=== PATIENT | male | born 1930 | race Caucasian/White ===

== ENCOUNTER → 2018-02-24 | Outpatient (CLI) | payer MEDICARE, BC ==
[2018-02-24 16:36] LABS: HCT 36.7 % (39.0-53.0); HGB 11.8 gm/dL (13.0-17.5); MCH 28.7 pg (25.0-35.0); MCHC 32.2 g/dL (31.0-37.0); Mean Platelet Volume 6.5; Platelet Count 317 k/uL (150-450); RBC 4.12 m/uL (4.30-5.90); RDW 14.4 % (11.5-15.5)
[2018-02-24 16:43] LABS: INR 1.1 (<1.2); Partial Thromboplastin Time 23.8 sec (22.0-30.0); Prothrombin Time 10.7 sec (9.0-12.0)
[2018-02-24 16:45] LABS: Appearance,Urine Cloudy (Clear); Bilirubin,Urine Negative (Negative); Blood,Urine Small (Negative); Color,Urine Yellow; Glucose,Urine (UA) Negative (Negative); Hyaline Casts,Urine 3 /lpf (0-2); Ketones,Urine Negative (Negative); Leukocyte Esterase,Urine Large (Negative); Mucus,Urine Rare /hpf; Nitrite,Urine Negative (Negative); PH, Urine 6.5 (5.0-8.0); Protein,Urine 2+ (Negative); RBC,Urine 11 /hpf (0-5); Specific Gravity,Urine 1.015 (1.001-1.035); Urobilinogen,Urine <2.0 mg/dL (<2.0); WBC,Urine 76 /hpf (0-5)
[2018-02-24 16:48] LABS: Albumin 4.2 g/dL (3.5-5.0); Calcium 9.6 mg/dL (8.4-10.2); Potassium 4.2 mmol/L (3.5-5.1); Total Bilirubin 0.3 mg/dL (0.2-1.3); Total Protein 6.7 g/dL (6.3-8.2)
== END | disposition home or self-care (01) ==
LOC: LABPAT 15:27
PROVIDERS: ATTEND Orthopaedic Surgery
DX: Z01.812 Encounter for preprocedural laboratory examination (principal)
CPT/HCPCS: 36415; 80053; 81001; 85027; 85610; 85730; 87070

== ENCOUNTER 2018-03-04 05:41 | Inpatient (IN) | payer MEDICARE, BC ==
[2018-02-27 14:39] VITALS: BMI 30.2
[~2018-03-04 05:41] MED LIST: ACETAMINOPHEN TAB 500 MG TAB PO ONE; DEXAMETHASONE SOD PHOSPHATE 10 MG/ML 1 ML VIAL IV ONE; MELOXICAM 7.5 MG TAB PO ONE; MIDAZOLAM 2 MG/2 ML VIAL IV PRN; ONDANSETRON 4 MG/2 ML VIAL IVP ONE; SCOPOLAMINE 1.5MG/72HR PATCH TRANSDERM ONE; TRANEXAMIC ACID 1,000 MG in SODIUM CHLORIDE 0.9% 50 ML IVPB ONE; ceFAZolin IN SWFI 2 GM/20 ML SYRINGE IVP ONE; fentaNYL (PF) 50 MCG/ML 2 ML AMP IV PRN
[2018-03-04] MEDS: LACTATED RINGERS 1,000 ML IV SCH (06:43)
[2018-03-04] MEDS ORDERED: LIDOCAINE 1% 20 ML VIAL (10MG/ML) FOR IV START INTRADERMA ONE (06:46)
[2018-03-04 06:53] LABS: Glucose,Whole Blood 91 mg/dL (75-99)
[2018-03-04] MEDS ORDERED: ONDANSETRON 4 MG/2 ML VIAL IVP PRN (06:53)
[2018-03-04] MEDS ORDERED: HYDROmorphone 0.5 MG/0.5 ML SYRINGE IVP PRN ×3 (06:53)
[2018-03-04] MEDS ORDERED: DIAZEPAM 5 MG TAB PO PRN ×2 (06:53)
[2018-03-04] MEDS ORDERED: MAGNESIUM HYDROXIDE 2,400 MG/10 ML CUP PO PRN (06:53)
[2018-03-04] MEDS ORDERED: traMADol 50 MG TAB PO PRN ×2 (06:53→14:31)
[2018-03-04] MEDS ORDERED: NALOXONE 0.4 MG/ML 1 ML VIAL IV PRN (06:53)
[2018-03-04] MEDS ORDERED: PHENYLEPHRINE-0.9% NACL SYG 1 MG/10 ML SYRINGE ONE (06:55)
[2018-03-04] MEDS ORDERED: SODIUM CHLORIDE 0.9% 100 ML BAG ONE (06:55)
[2018-03-04] MEDS ORDERED: diphenhydrAMINE 50 MG/ML 1 ML VIAL ONE (06:55)
[2018-03-04] MEDS ORDERED: HEPARIN SODIUM,PORCINE 10,000 UNIT/ML 1 ML VIAL ONE (06:55)
[2018-03-04] MEDS ORDERED: MIDAZOLAM 2 MG/2 ML VIAL ONE (06:55)
[2018-03-04] MEDS ORDERED: fentaNYL (PF) 50 MCG/ML 2 ML AMP ONE (06:55)
[2018-03-04] MEDS ORDERED: ePHEDrine SULFATE/0.9% NACL/PF 50 MG/5 ML SYRINGE IV ONE (06:55)
[2018-03-04] MEDS ORDERED: LACTATED RINGERS 1,000 ML BAG IV ONE (06:55)
[2018-03-04] MEDS ORDERED: TRANEXAMIC ACID 1,000 MG/10 ML VIAL ONE (06:55)
[2018-03-04] MEDS: ROPIVACAINE 246.25 MG, EPINEPHrine 0.5 MG, KETOROLAC 30 MG, cloNIDine HCL/PF 80 MCG, WA... MISCELLANE ONE ×10 (07:36→08:16)
[2018-03-04] MEDS ORDERED: ceFAZolin 3,000 MG in SODIUM CHLORIDE 0.9% IRRIGATIO 3,000 ML IRRIGATION ONE (07:37)
--- NOTE | 2018-03-04 08:39 | P.OP ---
Date of Procedure: 03/04/18 Preoperative Diagnosis: Severe osteoarthritis right hip Postoperative Diagnosis: Severe osteoarthritis right hip Procedure(s) Performed: Right total hip arthroplasty with a direct anterior approach Implants: Luevano and nephew Polarstem size 5 standard Luevano [employer] Nephew R3, 3 hole acetabular shell, 56 mm [employer] Nephew reflection 6.5 mm cancellus screw, 20 mm 2 [employer]hew R3, XLPE 20 acetabular liner Luev[employer] Nephew Oxinium femoral head 36 m, +0 All components were press-fit. The articulation is Oxinium on polyethylene. Anesthesia: spinal Surgeon: Giancarlo Tran Clinical Recruiter #1: Cindy Acuña Estimated Blood Loss (ml): 100 Pathology: other (Femoral head) Condition: stable Disposition: PACU Indications for Procedure: After failure of conservative treatment we discussed the surgical and nonsurgical treatment options at length. Patient wishes to proceed with a total hip arthroplasty with a direct anterior approach. Complications specific to this procedure were discussed at length, including but not limited to infection, leg length discrepancy, dislocation, and nerve injury. Patient is aware of all these complications and informed consent was obtained Operative Findings: The operative findings are consistent with severe osteoarthritis the right hip Description of Procedure: Patient was seen and evaluated in the preoperative area, consent was reviewed, and the surgical site was marked with a skin marker. Patient was then brought to the operating room and given prophylactic antibiotics intravenously. 1 g of Tranexamic acid was also given. A spinal anesthetic was administered by the anesthesia department. The patient was then placed on the [place] table with the bony prominences well-padded. The hip area was then prepped and draped in usual sterile fashion. A universal timeout was then performed, which confirmed the patient's name, surgical site, ALLERGIES, and procedure being performed. Next the incision site was located at 1 cm distal and 1 cm lateral to the anterior superior iliac spine. The skin and subcutaneous tissues were sharply incised. Incision was carefully dissected down to the fascia overlying the tensor fascia sola muscle. This fascia was then incised in line with the incision. Next, using blunt finger dissection, the tensor fascia sola muscle was dissected off its investing fascia. The muscle was then carefully retracted laterally with a cobra retractor over the lateral neck of the femur. Next, the circumflex vessels were identified and cauterized using the AquaMantis device. The anterior hip capsule was then exposed. The capsule was then opened and an inverted T fashion. Cobra retractors were then placed intracapsularly. The proximal femur was then visualized. The femoral neck was then osteotomized appropriate level above the lesser trochanter. Small amount of traction was placed with the [place] table. A small wedge of bone was then removed from the remaining femoral head. Next, using a corkscrew femoral head was easily removed from the acetabulum. On gross visual inspection, the femoral head had complete loss of articular cartilage in multiple periarticular osteophytes. Attention was then turned to the acetabulum. the acetabulum was exposed and any remaining labrum was excised. Sequential reaming of the acetabulum was performed using fluoroscopic guidance. When the appropriate size was reached, a trial was then placed. The position and fit of the trial was checked with fluoroscopy. The trial was then removed. Then, using fluoroscopic guidance, the final implant was impacted at 20 of anteversion and 40 of abduction, and fully seated in the acetabulum. 2 screws were then placed in the acetabulum. Again fluoroscopy was used to check position of the screws. Next, the liner was then impacted, with a 20 elevated liner located in the anterior superior quadrant. Component locking was confirmed. Attention was then directed to the femur. With the aid of the [place] table, the femur was externally rotated to approximately 130, extended, and abducted under the opposite leg. A side hook was then placed under the proximal femur, and the side hook elevator was used to elevate the proximal femur. Retractors were then placed. A capsular release was performed, as well as a release of the conjoined tendon, which afforded excellent visualization of the proximal femur. Next, a box osteotome was used to lateralize the proximal femur. A bread room hand was then used to locate the femoral canal. Sequential broaching was then performed with appropriate size which afforded excellent fixation in the proximal femur. A trial was then placed with appropriate head and neck, and the hip was gently reduced with the aid of the [place] table. Fluoroscopy was then used to check position of the components, as well as to ensure equal leg lengths. The hip was then gently dislocated and the trials were then removed. Final implants were then impacted and the hip was again reduced. Final fluoroscopic x-rays confirmed that the components were in anatomic position, as well as equal leg lengths. The hip was also taken through range of motion, and found to be stable. The hip was then copiously irrigated with antibiotic solution with pulsatile lavage. The hip was then irrigated with Irrisept solution. The soft tissues were then injected with a ropivacaine solution, which consisted of 246.25 mg of ropivacaine, 0.5 mg of epinephrine, 30 mg of Toradol, 80 g of clonidine, and 48.45 mL of sterile water, for a total of 100 mL of fluid injected. A second dose of 1 g of Tranexamic acid was also given. the fascia was then closed with 2-0 strata fix suture. The subcutaneous tissue was closed with 3-0 Vicryl. The subcuticular tissue was closed with 3-0 strata fix suture. The skin was then closed with Dermabond glue and a sterile silver dressing. The patient was then transferred to the recovery room in stable condition. The psychological assistant TARA Anglin was required due to the complexity of surgery, and the need for skilled legal assistant for positioning, draping, exposure, retraction, and closure of the wound.
--- NOTE | 2018-03-04 09:31 | XR ---
Limited right hip history: Anterior hip replacement 2 intraoperative C-arm images document the procedure.
--- NOTE | 2018-03-04 09:31 | XR ---
Limited right hip HISTORY: Postop right hip Single frontal view of the right hip. Patient is status post right hip arthroplasty. Probable prostatectomy clips present in the right tahir pelvis with penile prosthesis reservoir. Anatomic alignment post right hip arthroplasty. Lucency in the soft tissues is likely postoperative. IMPRESSION: Orthopedic follow-up.
--- NOTE | 2018-03-04 09:32 | FL ---
Fluoroscopy HISTORY: Hip replacement 40 seconds fluoroscopy time supplied to the referring clinician. 2 intraoperative C-arm images docum ent the procedure. See dictated report from orthopedic surgery.
[2018-03-04] MEDS: ASPIRIN 325 MG TAB PO SCH ×2 (11:27→20:20)
[2018-03-04 11:36] VITALS: RESP 16
[2018-03-04] MEDS: SODIUM CHLORIDE 0.9% 1,000 ML IV SCH ×2 (12:36→22:33)
[2018-03-04] MEDS ORDERED: traMADol 50 MG TAB PO SCH (13:00)
[2018-03-04] MEDS: ceFAZolin IN SWFI 2 GM/20 ML SYRINGE IVP SCH ×2 (14:36→22:29)
--- NOTE | 2018-03-04 14:47 | P.CONS ---
History of Present Illness - Reason for Consult Consult date: 03/04/18 Medical management Requesting physician: Giancarlo Tran - Chief Complaint right hip pain - History of Present Illness Patient is an 87-year-old male with past medical history of hypertension, diabetes, dyslipidemia, and chronic indwelling suprapubic tube who presented to the hospital for elective right total hip arthroplasty. Patient tolerated procedure well. Patient seen and examined at bedside. He is doing well after surgery. His pain was well-controlled, he denies any nausea, he is not having any shortness of breath or cough. He denies any recent infections including urinary tract infection. He does have a chronic suprapubic tube. He has not been sick or ill at all recently and denies any current cough, cold, fever, flu, chest pain, shortness of breath, nausea, vomiting, diarrhea. He does struggle with chronic constipation. Patient states he just finished a 10 day course of Cipro secondary to his urine. He was placed on this by his PCP would obtained a culture. He finished this 2 days prior to admission. Review of Systems Positives: + Right hip pain, + chronic constipation Pertinent positives and negatives as discussed in HPI, a complete review of systems was performed and all other systems are negative. Past Medical History Past Medical History: Cancer, Diabetes Mellitus, Hyperlipidemia, Hypertension, Osteoarthritis (OA), Prostate Disorder, Vascular Disorder Additional Past Medical History / Comment(s): PVD, cancer of prostate 1998, suprapubic catheter placed 2016, arthritis back, high blood pressure, heart appearing, history of palpitations, chronic constipation, prior angina History of Any Multi-Drug Resistant Organisms: None Reported Past Surgical History: Heart Catheterization, Orthopedic Surgery, Prostate Surgery Additional Past Surgical History / Comment(s): left carotid endartectomy, prostatectomy, artificial sphrincter in urethra,suprapubic catheter, srinivasa rotator cuff repair, colonoscopy, bilateral wrist surgery, appendectomy Past Anesthesia/Blood Transfusion Reactions: No Reported Reaction Past Psychological History: No Psychological Hx Reported Smoking Status: Never smoker Past Alcohol Use History: None Reported Past Drug Use History: None Reported Additional History: Lives with , uses walker at baseline. - Past Family History Mother Family Medical History: No Reported History Father Additional Family Medical History / Comment(s): enlarged heart Medications and Allergies Home Medications Medication Instructions Recorded Confirmed Type Acetaminophen [Tylenol] 650 mg PO Q6H PRN 02/27/18 03/04/18 History Ascorbic Acid [Vitamin C] 500 mg PO DAILY 02/27/18 03/04/18 History Cephalexin [Keflex] 250 mg PO Q6HR 02/27/18 03/04/18 History Cholecalciferol [Vitamin D3] 400 unit PO DAILY 02/27/18 03/04/18 History Ciprofloxacin HCl [Cipro] 500 mg PO Q12HR 02/27/18 03/04/18 History Cyanocobalamin [Vitamin B-12] 500 mcg PO DAILY 02/27/18 03/04/18 History Ferrous Sulfate [Feosol] 325 mg PO DAILY 02/27/18 03/04/18 History Finasteride [Proscar] 5 mg PO DAILY 02/27/18 03/04/18 History Furosemide [Lasix] 20 mg PO DAILY 02/27/18 03/04/18 History Gabapentin [Neurontin] 300 mg PO BID 02/27/18 03/04/18 History Glimepiride [Amaryl] 2 mg PO AC-BRKFST 02/27/18 03/04/18 History Metoprolol Succinate [Toprol XL] 25 mg PO DAILY 02/27/18 03/04/18 History Multivitamins, Thera [Multivitamin 1 tab PO DAILY 02/27/18 03/04/18 History (formulary)] Neomycin-Polymyxin Gu Irrigant 50 ml IRRIGATION DAILY 02/27/18 03/04/18 History Pioglitazone [Actos] 15 mg PO DAILY 02/27/18 03/04/18 History Polyethylene Glycol 3350 [Miralax] 17 gm PO DAILY 02/27/18 03/04/18 History Pravastatin Sodium [Pravachol] 40 mg PO HS 02/27/18 03/04/18 History Sennosides-Docusate Sodium 2 tab PO BID 02/27/18 03/04/18 History [Senokot-S] metFORMIN HCL 1,000 mg PO BID 02/27/18 03/04/18 History traMADol HCL [Ultram] 50 mg PO BID PRN 02/27/18 03/04/18 History Allergies Allergy/AdvReac Type Severity Reaction Status Date / Time adhesive Allergy skin red Verified 03/04/18 12:39 and irritated Physical Exam Osteopathic Statement: *. No significant issues noted on an osteopathic structural exam other than those noted in the History and Physical/Consult. Vitals: Vital Signs Temp Pulse Resp BP Pulse Ox 03/04/18 11:35 97.9 F 66 16 101/57 97 03/04/18 10:30 66 18 120/57 93 L 03/04/18 10:00 63 17 116/62 92 L 03/04/18 09:30 65 16 105/59 93 L 03/04/18 09:15 65 14 102/57 94 L 03/04/18 09:00 68 16 101/57 93 L 03/04/18 08:49 97.8 F 70 13 95/54 96 03/04/18 06:10 97.8 F 76 16 141/67 96 Intake and Output 03/03/18 03/04/18 03/04/18 22:59 06:59 14:59 Intake Total 300 466 Output Total 225 Balance 300 241 Intake: IV 300 401 Intake, IV Titration 65 Amount Sodium Chloride 0.9% 1, 65 000 ml @ 65 mls/hr IV . [id number] [facility] Rx#:[id number] Output: Urine 125 Estimated Blood Loss 100 Other: Voiding Method Indwelling Catheter Weight 95.708 kg General: non toxic, no distress, appears younger than stated age, normal weight Derm: no unusual rashes/lesions no unusual ecchymoses, warm, dry Head: atraumatic, normocephalic, symmetric Eyes: EOMI, no lid lag, anicteric sclera, pupils equal round reactive to light ENT: Nose and ears atraumatic, no thrush, no pharyngeal erythema Neck: No thyromegaly, no cervical lymphadenopathy, trachea midline, supple Mouth: no lip lesion, mucus membranes moist Cardiovascular: S1S2 reg, no murmur, positive posterior tibial pulse bilateral, no edema, capillary refill less than 2 seconds Lungs: Breath sounds bilateral bases, no rhonchi, no rales , no accessory muscle use Abdominal: soft, nontender to palpation, no guarding, no appreciable organomegaly, normal bowel sounds Ext: no gross muscle atrophy, muscle strength 5 out of 5 upper extremity bilaterally, moving toes and bilateral lower extremities, no contractures, Neuro: CN II-XI grossly intact, light touch intact all 4 extremities, finger to nose within normal limits, Psych: Alert, oriented, appropriate affect Results Comments: Preoperative laboratory analysis reviewed hemoglobin was 11.8, urine was consistent with possible urinary tract infection with positive leukocyte esterase, negative nitrites. Assessment and Plan Assessment: Osteoarthritis status post right anterior hip -Aspirin for DVT prophylaxis per orthopedics -Pain control -PT/OT -Fall precautions Diabetes mellitus type 2 -Resume Actos -Hold metformin and glyburide today -Sliding scale -If tolerating diet in a.m. plan on resuming all medications at discharge Constipation -Continue with home MiraLAX -Bowel regiment Hypertension, currently controlled -Patient said he stopped his Toprol several weeks ago -Follow blood pressures Dyslipidemia -Statin Recent UTI with indwelling suprapubic tube -Status post treatment -Would not repeat culture at this point in time as suprapubic tubes tend to have chronic colonization Thank you for allowing us to participate in the care of this patient. Do not hesitate to contact us with questions. Someone can be reached from the [facility] hospitalist group at all hours of the day at [phone]. Patient plans on discharging home with home health
[2018-03-04 16:49] LABS: Glucose,Whole Blood 286 mg/dL (75-99)
[2018-03-04] MEDS: INSULIN ASPART 100 UNIT/ML 1 ML 10 ML VIAL SQ SCH ×2 (18:20→20:19)
[2018-03-04] MEDS: PIOGLITAZONE 15 MG TAB PO SCH (18:20)
[2018-03-04 20:16] LABS: Glucose,Whole Blood 281 mg/dL (75-99)
[2018-03-04] MEDS: GABAPENTIN 300 MG CAP PO SCH (20:20)
[2018-03-04] MEDS: SENNOSIDES-DOCUSATE SODIUM 1 EACH TAB PO SCH (20:20)
[2018-03-04] MEDS ORDERED: PRAVASTATIN SODIUM 40 MG TAB PO SCH (21:00)
[2018-03-04] MEDS ORDERED: SENNOSIDES-DOCUSATE SODIUM 1 EACH TAB PO SCH (21:00)
[2018-03-05] MEDS ORDERED: CEPHALEXIN 250 MG CAP PO SCH
[2018-03-05 01:44] VITALS: BP 97/57; PULSE 60; TEMP 97.7
[2018-03-05 06:50] LABS: Glucose,Whole Blood 118 mg/dL (75-99)
[2018-03-05] MEDS ORDERED: METOPROLOL SUCCINATE (ER) 25 MG TAB.ER.24H PO SCH (09:00)
[2018-03-05] MEDS ORDERED: NEOMYCIN IRRIGATION SCH (09:00)
[2018-03-05] MEDS ORDERED: POLYETHYLENE GLYCOL 3350 17 GM POWD.PACK PO SCH (09:00)
[2018-03-05] MEDS ORDERED: FUROSEMIDE 20 MG TAB PO SCH (09:00)
[2018-03-05] MEDS ORDERED: MELOXICAM 7.5 MG TAB PO SCH (09:00)
[2018-03-05] MEDS ORDERED: FERROUS SULFATE 325 MG TAB PO SCH (09:00)
[2018-03-05] MEDS ORDERED: ASCORBIC ACID 500 MG TAB PO SCH (09:00)
[2018-03-05] MEDS ORDERED: MULTIVITAMINS, THERA 1 EACH TAB PO SCH (09:00)
[2018-03-05] MEDS ORDERED: FINASTERIDE 5 MG TAB PO SCH (09:00)
[2018-03-05] MEDS ORDERED: [UNRECOGNIZED DRUG - OTHER] IRRIGATION SCH (09:00)
[2018-03-05] MEDS ORDERED: HYDROcodone/APAP 5-325MG 1 EACH TAB ONE (10:18)
[2018-03-05] MEDS: INSULIN ASPART 100 UNIT/ML 1 ML 10 ML VIAL SQ SCH ×2 (10:42→12:57)
[2018-03-05] MEDS: LACTATED RINGERS 1,000 ML IV SCH (10:42)
[2018-03-05] MEDS: ASPIRIN 325 MG TAB PO SCH (10:43)
[2018-03-05] MEDS: GABAPENTIN 300 MG CAP PO SCH (10:43)
[2018-03-05] MEDS: PIOGLITAZONE 15 MG TAB PO SCH (10:44)
[2018-03-05] MEDS: SENNOSIDES-DOCUSATE SODIUM 1 EACH TAB PO SCH (10:44)
[2018-03-05] MEDS ORDERED: HYDROcodone/APAP 5-325MG 1 EACH TAB PO PRN ×2 (10:46)
--- NOTE | 2018-03-05 11:10 | P.DS ---
Providers Date of admission: 03/04/18 05:41 Expected date of discharge: 03/05/18 Attending physician: Giancarlo Tran Consults: 03/04/18 06:53 Consult Physician Routine Consulting Provider: Sheyla Ayala Consult Reason/Comments: medical management Do you want consulting provider notified?: Yes Primary care physician: Physician Nonstaff - Discharge Diagnosis(es) (1) S/P total hip arthroplasty Current Visit: Yes Status: Acute (2) Primary osteoarthritis of right hip Current Visit: Yes Status: Acute Hospital Course: This is a 87-year-old male with known history of degenerative arthritis of the right hip. The patient presents for evaluation. After discussion and consideration patient elects to proceed with total hip arthroplasty. The patient is seen preoperatively by Dr. Tran and cleared for surgery. Patient is admitted to [facility] on 03/04/2018 for total hip arthroplasty. The procedures performed without complication or sequelae. The patient is doing well postoperatively. Labs and vital signs are stable on day of discharge. On day of discharge patient's hip incision is healing well. There is minimal erythema. There is no drainage noted at this time. There is minimal soft tissue swelling to the hip and thigh. Patient has full foot and ankle motion without difficulty or pain. Neurovascular status to the right lower extremity is intact. Patient is discharged home in good condition. Please see med rec for accurate list of home medications. Plan - Discharge Summary Discharge Rx Participant: Yes New Discharge Prescriptions: New Aspirin 325 mg PO BID #60 tab HYDROcodone/APAP 5-325MG [Mammoth 5-325] 1 - 2 tab PO Q4-6H PRN #90 tab PRN Reason: Pain Sennosides [Senokot] 1 tab PO BID #60 tablet No Action Ciprofloxacin HCl [Cipro] 500 mg PO Q12HR Finasteride [Proscar] 5 mg PO DAILY Ferrous Sulfate [Feosol] 325 mg PO DAILY Cyanocobalamin [Vitamin B-12] 500 mcg PO DAILY Ascorbic Acid [Vitamin C] 500 mg PO DAILY Pravastatin Sodium [Pravachol] 40 mg PO HS Polyethylene Glycol 3350 [Miralax] 17 gm PO DAILY Pioglitazone [Actos] 15 mg PO DAILY Cholecalciferol [Vitamin D3] 400 unit PO DAILY traMADol HCL [Ultram] 50 mg PO BID PRN PRN Reason: Pain Sennosides-Docusate Sodium [Senokot-S] 2 tab PO BID metFORMIN HCL 1,000 mg PO BID Multivitamins, Thera [Multivitamin (formulary)] 1 tab PO DAILY Metoprolol Succinate [Toprol XL] 25 mg PO DAILY Glimepiride [Amaryl] 2 mg PO AC-BRKFST Gabapentin [Neurontin] 300 mg PO BID Furosemide [Lasix] 20 mg PO DAILY Cephalexin [Keflex] 250 mg PO Q6HR Acetaminophen [Tylenol] 650 mg PO Q6H PRN PRN Reason: Pain Neomycin-Polymyxin Gu Irrigant 50 ml IRRIGATION DAILY Discharge Medication List Acetaminophen [Tylenol] 650 mg PO Q6H PRN 02/27/18 [History] Ascorbic Acid [Vitamin C] 500 mg PO DAILY 02/27/18 [History] Cephalexin [Keflex] 250 mg PO Q6HR 02/27/18 [History] Cholecalciferol [Vitamin D3] 400 unit PO DAILY 02/27/18 [History] Ciprofloxacin HCl [Cipro] 500 mg PO Q12HR 02/27/18 [History] Cyanocobalamin [Vitamin B-12] 500 mcg PO DAILY 02/27/18 [History] Ferrous Sulfate [Feosol] 325 mg PO DAILY 02/27/18 [History] Finasteride [Proscar] 5 mg PO DAILY 02/27/18 [History] Furosemide [Lasix] 20 mg PO DAILY 02/27/18 [History] Gabapentin [Neurontin] 300 mg PO BID 02/27/18 [History] Glimepiride [Amaryl] 2 mg PO AC-BRKFST 02/27/18 [History] Metoprolol Succinate [Toprol XL] 25 mg PO DAILY 02/27/18 [History] Multivitamins, Thera [Multivitamin (formulary)] 1 tab PO DAILY 02/27/18 [History ] Neomycin-Polymyxin Gu Irrigant 50 ml IRRIGATION DAILY 02/27/18 [History] Pioglitazone [Actos] 15 mg PO DAILY 02/27/18 [History] Polyethylene Glycol 3350 [Miralax] 17 gm PO DAILY 02/27/18 [History] Pravastatin Sodium [Pravachol] 40 mg PO HS 02/27/18 [History] Sennosides-Docusate Sodium [Senokot-S] 2 tab PO BID 02/27/18 [History] metFORMIN HCL 1,000 mg PO BID 02/27/18 [History] traMADol HCL [Ultram] 50 mg PO BID PRN 02/27/18 [History] Aspirin 325 mg PO BID #60 tab 03/05/18 [Rx] HYDROcodone/APAP 5-325MG [Mammoth 5-325] 1 - 2 tab PO Q4-6H PRN #90 tab 03/05/18 [ Rx] Sennosides [Senokot] 1 tab PO BID #60 tablet 03/05/18 [Rx] Follow up Appointment(s)/Referral(s): Giancarlo Tran DO [Doctor of Osteopathic Medicine] - 2 Weeks Activity/Diet/Wound Care/Special Instructions: [facility] - [phone] Weightbearing as tolerated with walker Leave dressing intact. Dressing may be removed by home care nurse in 10 days. May shower with dressing on. Follow-up with [facility] in 2 weeks, please call with any questions or concerns [phone] Discharge Disposition: HOME WITH HOME HEALTH SERVICES
[2018-03-05 11:16] LABS: Basophils % (A) 0 %; Eosinophils # (A) 0.2 k/uL (0-0.7); Eosinophils % (A) 2 %; HCT 31.8 % (39.0-53.0); Lymphocytes # (A) 1.8 k/uL (1.0-4.8); Lymphocytes % (A) 19 %; MCH 28.4 pg (25.0-35.0); MCV 91.7 fL (80.0-100.0); Mean Platelet Volume 6.7; Monocytes # (A) 0.7 k/uL (0-1.0); Monocytes % (A) 8 %; Neutrophils # (A) 6.3 k/uL (1.3-7.7); Neutrophils % (A) 69 %; Platelet Count 286 k/uL (150-450); RBC 3.46 m/uL (4.30-5.90); RDW 14.3 % (11.5-15.5)
[2018-03-05 11:24] LABS: HGB 9.8 gm/dL (13.0-17.5)
[2018-03-05 11:44] LABS: Glucose,Whole Blood 212 mg/dL (75-99)
[2018-03-05] MEDS ORDERED: CYANOCOBALAMIN 500 MCG TAB PO SCH (12:00)
[2018-03-05] MEDS ORDERED: CHOLECALCIFEROL 400 UNIT TAB PO SCH (12:00)
--- NOTE | 2018-03-05 12:04 | P.PN ---
Subjective Progress Note Date: 03/05/18 Principal diagnosis: Right hip pain Patient is an 87-year-old male with past medical history of hypertension, diabetes, dyslipidemia, and chronic indwelling suprapubic tube who presented to the hospital for elective right total hip arthroplasty. Patient tolerated procedure well. Examined at bedside. His pain is well controlled. He is up and walking. Denies any nausea or vomiting. Not having any chest pain or shortness of breath. Objective - Vital Signs Vital signs: Vital Signs Temp 97.7 F 03/05/18 00:59 Pulse 60 03/05/18 00:59 Resp 16 03/05/18 00:59 BP 97/57 03/05/18 00:59 Pulse Ox 93 L 03/05/18 00:59 Intake & Output 03/04/18 03/05/18 03/05/18 18:59 06:59 18:59 Intake Total 466 727.5 Output Total 525 200 Balance -59 527.5 Weight 95.708 kg Intake: IV 401 Intake, IV Titration 65 227.5 Amount Sodium Chloride 0.9% 1, 65 227.5 000 ml @ 65 mls/hr IV . [id number] [facility] Rx#:[id number] Oral 500 Output: Urine 425 200 Estimated Blood Loss 100 Other: Voiding Method Indwelling Catheter Indwelling Catheter - Exam General: non toxic, no distress, appears younger than stated age Derm: warm, dry Head: atraumatic, normocephalic, symmetric Eyes: EOMI, no lid lag, anicteric sclera Mouth: no lip lesion, mucus membranes moist Cardiovascular: S1S2 reg, no murmur, positive posterior tibial pulse bilateral, Lungs: CTA bilateral, no rhonchi, no rales , no accessory muscle use Abdominal: soft, nontender to palpation, no guarding, no appreciable organomegaly Ext: no gross muscle atrophy, no edema, no contractures Neuro: CN II-XI grossly intact, no focal neuro deficits Psych: Alert, oriented, appropriate affect - Labs CBC & Chem 7: 03/05/18 07:54 Labs: Abnormal Lab Results - Last 24 Hours (Table) 03/04/18 03/04/18 03/05/18 Range/Units 16:43 20:14 06:45 RBC (4.30-5.90) m/uL Hgb (13.0-17.5) gm/dL Hct (39.0-53.0) % POC Glucose (mg/dL) 286 H 281 H 118 H (75-99) mg/dL 03/05/18 03/05/18 Range/Units 07:54 11:33 RBC 3.46 L (4.30-5.90) m/uL Hgb 9.8 L D (13.0-17.5) gm/dL Hct 31.8 L (39.0-53.0) % POC Glucose (mg/dL) 212 H (75-99) mg/dL Assessment and Plan Assessment: Osteoarthritis status post right anterior hip -Aspirin for DVT prophylaxis per orthopedics -Pain control -PT/OT -Fall precautions Anticipated Acute blood loss anemia - increased FE to BID X 30 days and then resume once daily Diabetes mellitus type 2 -Resume all oral medications with actos, glipizide, and metfromin Constipation -Continue with home MiraLAX -Bowel regiment Hypertension, currently controlled -Patient said he stopped his Toprol several weeks ago -Follow blood pressures Dyslipidemia -Statin Recent UTI with indwelling suprapubic tube -Status post treatment -Would not repeat culture at this point in time as suprapubic tubes tend to have chronic colonization Medically stable for discharge home. Patient to resume ASA daily after discharge.
[2018-03-05 18:00] LABS: Hemoglobin A1C 6.7 % (4.0-6.0)
== END 2018-03-05 13:59 | disposition home health service (06) | DRG 470 ==
LOC: 2ORMAIN 05:41 → 3SUR 11:15
PROVIDERS: ADMIT Orthopaedic Surgery; ATTEND Orthopaedic Surgery
PROC: 30233N0 Transfusion of Autologous Red Blood Cells into Peripheral Vein, Percutaneous Approach (ICD-10-PCS; 2018-03-04)
PROC: 0SR906A Replacement of Right Hip Joint with Oxidized Zirconium on Polyethylene Synthetic Substitute, Uncemented, Open Approach (ICD-10-PCS; principal; 2018-03-04 07:00)
DX: M16.11 Unilateral primary osteoarthritis, right hip (principal); D62 Acute posthemorrhagic anemia; E78.5 Hyperlipidemia, unspecified; E11.51 Type 2 diabetes mellitus with diabetic peripheral angiopathy without gangrene; I10 Essential (primary) hypertension; K59.09 Other constipation; M46.90 Unspecified inflammatory spondylopathy, site unspecified; H91.90 Unspecified hearing loss, unspecified ear; Z79.84 Long term (current) use of oral hypoglycemic drugs; Z79.82 Long term (current) use of aspirin; Z79.899 Other long term (current) drug therapy; Z93.51 Cutaneous-vesicostomy status; Z85.46 Personal history of malignant neoplasm of prostate; Z87.440 Personal history of urinary (tract) infections; Z86.79 Personal history of other diseases of the circulatory system; Z91.048 Other nonmedicinal substance allergy status; Z83.3 Family history of diabetes mellitus; Z82.49 Family history of ischemic heart disease and other diseases of the circulatory system
CPT/HCPCS: 73501; 83036; 85025; 86850; 86891; 86900; 86901